=== PATIENT | male | born 1985 | race Caucasian/White ===

== ENCOUNTER 2017-05-06 00:57 | Emergency (ER) | payer MEDICAID ==
[2017-05-06 01:03] VITALS: RESP 18
--- NOTE | 2017-05-06 01:14 | EDPHY ---
H & P Stated Complaint: RIGHT LEG SCIATIC PAIN, HX OF SAME, TOOK FLEXERIL NOW WORSE Time Seen by Provider: 05/06/17 01:00 HPI/ROS: HPI CHIEF COMPLAINT: Back pain, sciatica HISTORY OF PRESENT ILLNESS: Patient is a 31-year-old male, he is otherwise healthy without any significant medical history does not take any daily medications he presents emergency room with back pain. Patient states for the past few days he has had sciatica type back pain. With this sharp stabbing pain 1 down his right gluteus down the right posterior leg to his foot. It is worse with straight leg raise. He denies any back trauma. He has never had imaging of his back. He denies fever. Denies saddle anesthesia. Denies bowel or bladder incontinence. Describes the pain as sharp stabbing 8/10 right posterior gluteus into leg. Patient does state he went to a clinic and was given cyclobenzaprine but this is not helped. Past Medical History: Denies significant medical history Past Surgical History: Denies significant surgical history Social History: Denies daily use of drugs alcohol tobacco. Family History: Noncontributory ROS REVIEW OF SYSTEMS: A comprehensive 10 point review of systems is otherwise negative aside from elements mentioned in the history of present illness. Exam Constitutional triage nursing summary reviewed, vital signs reviewed, awake/ alert. Eyes normal conjunctivae and sclera, EOMI, PERRLA. HENT normal inspection, atraumatic, moist mucus membranes, no epistaxis, neck supple/ no meningismus, no raccoon eyes. Respiratory clear to auscultation bilaterally, normal breath sounds, no respiratory distress, no wheezing. Cardiovascular rate normal, regular rhythm, no murmur, no edema, distal pulses normal. Gastrointestinal soft, non-tender, no rebound, no guarding, normal bowel sounds, no distension, no pulsatile mass. Genitourinary no CVA tenderness. Musculoskeletal back exam: No midline vertebral body pain on exam, no lumbar tenderness with palpation, he complains of right sciatica type pain down his right gluteus. But nontender palpation, no evidence of muscle spasm on exam, right leg is neurovascular intact with good distal pulse. Good cap refill, full range of motion, good strength. no midline vertebral tenderness, full range of motion, no calf swelling, no tenderness of extremities, no meningismus , good pulses, neurovascularly intact. Skin pink, warm, & dry, no rash, skin atraumatic. Neurologic awake, alert and oriented x 3, AAOx3, moves all 4 extremities equally, motor intact, sensory intact, CN II-XII intact, normal cerebellar, normal vision, normal speech. Psychiatric normal mood/affect. Heme/Lymph/Immune no lymphadenopathy. Differential Diagnosis: Includes but is not limited to in a particular order sciatica, disc herniation, annular tear, compression fracture Medical Decision Making: Plan for this patient x-ray of the lumbar spine, Hartwick for pain control, Valium for muscle relaxation, IM Toradol 60 mg. And re- evaluate. Re-evaluation: X-ray of the lumbar spine shows no evidence of acute compression fracture. No significant malalignment. 0244: On re-examination patient resting comfortably feels much better after pain control here in emergency room. I do recommend he follows up with his primary care doctor additionally I recommend that he undergoes physical therapy. Return precautions discussed with him he understands return emergency room if develops worsening pain questions or concerns. Clinical diagnosis sciatica. He has no red flags for cauda equina syndrome or spinal epidural abscess or cord compression. Source: Patient - Personal History Current Tetanus/Diphtheria Vaccine: Yes Current Tetanus Diphtheria and Acellular Pertussis (TDAP): Yes - Medical/Surgical History Hx Asthma: No Hx Chronic Respiratory Disease: No Hx Diabetes: No Hx Cardiac Disease: No Hx Renal Disease: No Hx Cirrhosis: No Hx Alcoholism: No Hx HIV/AIDS: No Hx Splenectomy or Spleen Trauma: No Other PMH: LOW BACK PAIN, STOMACH PAIN, - Social History Smoking Status: Never smoked Constitutional: Initial Vital Signs Temperature (C) 36.5 C 05/06/17 00:58 Heart Rate 60 05/06/17 00:58 Respiratory Rate 18 05/06/17 00:58 O2 Sat (%) 100 05/06/17 00:58 O2 Delivery Mode Room Air Allergies/Adverse Reactions: No Known Allergies Allergy (Unverified 05/06/17 01:03) Home Medications: Medication Instructions Recorded Cyclobenzaprine [Flexeril 10 MG 10 mg PO TID 05/06/17 (*)] Dexamethasone [Decadron 4 MG (*)] 4 mg PO DAILY #4 tab 05/06/17 Diazepam [Valium 5 MG (*)] 5 mg PO TID PRN #7 tab 05/06/17 Ibuprofen [Motrin (*)] 800 mg PO Q6-8PRN #14 tab 05/06/17 Naproxen Sodium [Aleve] 220 mg PO 05/06/17 Medical Decision Making - Data Points Medications Given: Discontinued Medications Hydrocodone Bitart/Acetaminophen (Hartwick 5/325mg Prepack#6) 1 btl TAKEHOME EDNOW ONE Stop: 05/06/17 01:23 Last Admin: 05/06/17 01:33 Dose: 1 btl Hydrocodone Bitart/Acetaminophen (Hartwick 5/325) 1 tab PO EDNOW ONE Stop: 05/06/17 01:23 Last Admin: 05/06/17 01:31 Dose: 1 tab Dexamethasone (Decadron) 8 mg PO EDNOW ONE Stop: 05/06/17 01:30 Last Admin: 05/06/17 01:38 Dose: 8 mg Diazepam (Valium) 5 mg PO EDNOW ONE Stop: 05/06/17 01:23 Last Admin: 05/06/17 01:32 Dose: 5 mg Ketorolac Tromethamine (Toradol) 60 mg IM EDNOW ONE Stop: 05/06/17 01:28 Last Admin: 05/06/17 02:04 Dose: Not Given Ketorolac Tromethamine (Toradol) 30 mg IM ONCE ONE Stop: 05/06/17 01:36 Last Admin: 05/06/17 01:38 Dose: 30 mg Ketorolac Tromethamine (Toradol) 30 mg IM EDNOW ONE Stop: 05/06/17 01:37 Last Admin: 05/06/17 01:39 Dose: 30 mg Departure - Departure Disposition: Home, Routine, Self-Care Clinical Impression: Sciatica Qualifiers: Laterality: right Qualified Code(s): M54.31 - Sciatica, right side Condition: Good Instructions: Sciatica (ED), Lumbar Radiculopathy (ED) Additional Instructions: 1. Follow up with her primary care doctor. 2. You should undergo physical therapy for her back. 3. Ice your back. 4. Take anti-inflammatory pain medicine for mild pain control Referrals: NONE *PRIMARY CARE P,. [Primary Care Provider] - As per Instructions Prescriptions: Dexamethasone [Decadron 4 MG (*)] 4 mg PO DAILY #4 tab Diazepam [Valium 5 MG (*)] 5 mg PO TID PRN #7 tab PRN Reason: Spasms Ibuprofen [Motrin (*)] 800 mg PO Q6-8PRN #14 tab
[2017-05-06] MEDS ORDERED: DIAZEPAM 5 MG TAB PO ONE (01:22)
[2017-05-06] MEDS ORDERED: HYDROCODONE/APAP 5/325 TAB PO ONE (01:22)
[2017-05-06] MEDS ORDERED: HYDROCOD/APAP 5/325 PREPACK#6 BTL TAKEHOME ONE (01:22)
[2017-05-06] MEDS ORDERED: DEXAMETHASONE 4 MG TAB PO ONE (01:29)
[2017-05-06] MEDS: KETOROLAC 15 MG/1 ML SDV IM ONE ×2 (01:32→02:04)
[2017-05-06] MEDS ORDERED: KETOROLAC 30 MG/1 ML SDV IM ONE ×2 (01:35→01:36)
[2017-05-06 03:00] VITALS: BP 132/72; PULSE 68; TEMP 97.9; O2SAT 95
== END 2017-05-06 02:58 | disposition home or self-care (01) ==
DX: M54.31 Sciatica, right side (principal)
CPT/HCPCS: J1885